=== PATIENT | female | born 1995 | race Caucasian/White ===

== ENCOUNTER 2024-08-17 06:04 | Inpatient (IN) | payer BC ==
[2024-08-17] MEDS ORDERED: CARBOPROST TROMETHAMINE 250 MCG/ML 1 ML AMP IM PRN (06:25)
[2024-08-17] MEDS ORDERED: TRANEXAMIC 1,000 MG/100ML-NACL 1,000 MG in EMPTY BAG 1 BAG IV PRN (06:25)
[2024-08-17] MEDS ORDERED: METHYLERGONOVINE 0.2 MG/ML 1 ML AMP IM PRN (06:25)
[2024-08-17] MEDS ORDERED: OXYTOCIN 10 UNIT/ML 1 ML VIAL IM PRN (06:25)
[2024-08-17] MEDS ORDERED: TERBUTALINE 1 MG/ML VIAL SQ PRN (06:25)
[2024-08-17] MEDS: LACTATED RINGERS 1,000 ML IV SCH (06:49)
[2024-08-17 06:54] LABS: Basophils # (A) 0.03 10*3/uL (0.00-0.10); Basophils % (A) 0.2 %; Eosinophils # (A) 0.07 10*3/uL (0.04-0.35); Eosinophils % (A) 0.5 %; HCT 40.1 % (37.2-46.3); HGB 14.8 g/dL (12.0-15.0); Immature Platelet Fraction 16.7 % (1.1-6.1); Lymphocytes # (A) 1.99 10*3/uL (0.90-5.00); Lymphocytes % (A) 14.9 %; MCH 36.4 pg (27.0-32.0); MCHC 36.9 g/dL (32.0-37.0); MCV 98.5 fL (80.0-97.0); Monocytes # (A) 0.76 10*3/uL (0.20-1.00); Monocytes % (A) 5.7 %; Neutrophils # (A) 10.31 10*3/uL (1.80-7.70); Neutrophils % (A) 77.3 %; Platelet Count 115 10*3/uL (140-440); RBC 4.07 10*6/uL (4.10-5.20); RDW 12.0 % (11.5-14.5); WBC 13.35 10*3/uL (4.50-10.00)
[2024-08-17] MEDS: OXYTOCIN 30 UNITS/500 ML NS 30 UNIT in SALINE 1 500ML.BAG IV SCH (07:05)
[2024-08-17] MEDS: NALBUPHINE 10 MG/ML (10 ML MDV) IV PRN (15:15)
[2024-08-17] MEDS ORDERED: fentaNYL (PF) 50 MCG/ML 5 ML AMP ONE (17:57)
[2024-08-17] MEDS ORDERED: ROPIVACAINE 5 MG/ML 30 ML VIAL ONE (17:57)
[2024-08-17] MEDS ORDERED: SODIUM CHLORIDE 0.9% 250 ML BAG ONE (17:57)
[2024-08-17] MEDS: AMPICILLIN 2,000 MG in SODIUM CHLORIDE 0.9% 100 ML IVPB ONE (20:45)
[2024-08-18] MEDS ORDERED: LANOLIN CREAM 1 GM TUBE TOPICAL PRN (00:56)
[2024-08-18] MEDS ORDERED: ZOLPIDEM 5 MG TAB PO PRN (00:56)
[2024-08-18] MEDS ORDERED: SIMETHICONE 80 MG CHEWABLE PO PRN (00:56)
[2024-08-18] MEDS ORDERED: diphenhydrAMINE 50 MG/ML 1 ML VIAL IVP PRN ×2 (00:56)
[2024-08-18] MEDS ORDERED: diphenhydrAMINE 25 MG CAP PO PRN (00:56)
--- NOTE | 2024-08-18 01:01 | P.PROBDLV ---
Vaginal Delivery Note - . Vaginal Delivery Note: Date of service 08/18/2024 Findings viable female infant delivered at 00 38, weight of 8 pounds 1 ounce 29-year-old 2 para 0-0-1-0 at 39-2/7 weeks that presented to labor and delivery for induction of labor this morning. Patient was admitted and Pitocin induction of labor was begun. Patient underwent amniotomy clear fluid was obtained. Patient made slow progress in labor eventually becoming uncomfortable and requesting epidural. Epidural was placed without difficulty by the anesthesia department. Patient made progress toward complete dilation once completely dilated patient began pushing and with excellent maternal effort patient had a normal spontaneous vaginal delivery of a viable female at 00 38, weight of 8 pounds 1 ounce, Apgars of 9 and 10 at 1 and 5 minutes respectively. Spontaneous cry was noted at . After a 2-minute delay the umbilical cord was doubly clamped and cut and delivered manually. Uterus was firm and below the umbilicus at that time. Bleeding did slow. Placenta was inspected and found to be intact. Marginal cord insertion was appreciated. On inspection the patient's vaginal vault second-degree midline laceration was appreciated, injected with lidocaine and repaired in the usual fashion with 3-0 Rapide. The bladder was drained for approximately 200 cc of clear yellow urine. All counts around be correct x 2 Patient and infant tolerated delivery well and are resting comfortably
--- NOTE | 2024-08-18 01:02 | P.HPOB ---
History of Present Illness H&P Date: 08/17/24 Chief Complaint: IUP at 39-3/7-week This is a 29-year-old G2, P0010 at 39-2/7 weeks that presents to labor and delivery for elective induction of labor. Patient has been receiving routine care which has been essentially uncomplicated, marginal cord insertion was appreciated on 20-week anatomy ultrasound. Patient notes good movement denies vaginal bleeding or loss of fluid. On blood work this patient has a blood type of O+, rubella status immune, hepatitis B surface and negative, HIV negative, RPR is nonreactive, group A strep culture is negative. Review of Systems Constitutional: Denies chills, Denies fatigue, Denies fever Ears, nose, mouth and throat: Denies headache Cardiovascular: Reports leg edema Respiratory: Denies dyspnea Gastrointestinal: Denies nausea, Denies vomiting Genitourinary: Reports Past Medical History Past Medical History: No Reported History History of Any Multi-Drug Resistant Organisms: None Reported Past Surgical History: Tonsillectomy Past Anesthesia/Blood Transfusion Reactions: No Reported Reaction Past Psychological History: No Psychological Hx Reported Smoking Status: Never smoker Past Drug Use History: None Reported Medications and Allergies Home Medications Medication Instructions Recorded Confirmed Type Aspirin 1 tab PO DAILY 08/17/24 08/17/24 History Vit No.179/Iron/Folic 1 tab PO DAILY 08/17/24 08/17/24 History [ Tablet] Allergies Allergy/AdvReac Type Severity Reaction Status Date / Time No Known Allergies Allergy Verified 08/17/24 06:23 Exam Osteopathic Statement: *. No significant issues noted on an osteopathic structural exam other than those noted in the History and Physical/Consult. Vital Signs Temp Pulse Resp BP Pulse Ox 08/17/24 06:43 97.6 F 82 16 133/74 97 Intake and Output 08/16/24 08/17/24 08/17/24 22:59 06:59 14:59 Other: Weight 92.533 kg Targeted physical exam is performed on this date in general is a well-nourished well-developed female in no acute distress, breathing is nonlabored, heart has a regular rate and rhythm, abdomen is gravid, heart tones are noted to be category 1 and she is maricarmen every 2 minutes. Results Result Diagrams: 08/17/24 06:40 Abnormal Lab Results - Last 24 Hours (Table) 08/17/24 Range/Units 06:40 WBC 13.35 H (4.50-10.00) 10*3/uL RBC 4.07 L (4.10-5.20) 10*6/uL MCV 98.5 H (80.0-97.0) fL MCH 36.4 H (27.0-32.0) pg Plt Count 115 L (140-440) 10*3/uL MPV 13.8 H (9.5-12.2) fL Immature Gran # 0.19 H (0.00-0.04) 10*3/uL Neutrophils # 10.31 H (1.80-7.70) 10*3/uL Immature Plt Fraction 16.7 H (1.1-6.1) % Assessment and Plan (1) Term Current Visit: Yes Status: Acute Code(s): Z34.90 - ENCNTR FOR SUPRVSN OF NORMAL , UNSP, UNSP TRIMESTER SNOMED Code(s): 97578073 Plan: Admit to labor and delivery Induction of labor per protocol Clear liquid diet as tolerated Options for analgesia discussed, patient does elect epidural when appropriate Anticipate spontaneous vaginal delivery
[2024-08-18] MEDS: LIDOCAINE 0.5% (PF) 5 MG/ML (50 ML SDV) SQ PRN (01:11)
[2024-08-18] MEDS: BENZOCAINE/MENTHOL SPRAY 1 GM/SPRAY AEROSOL TOPICAL PRN (01:27)
[2024-08-18] MEDS: IBUPROFEN 800 MG TAB PO SCH (02:11)
[2024-08-18] MEDS: SENNOSIDES-DOCUSATE SODIUM 1 EACH TAB PO SCH (08:13)
[2024-08-18] MEDS: ACETAMINOPHEN TAB 500 MG TAB PO SCH (08:13)
--- NOTE | 2024-08-18 09:27 | P.PNOBGVD ---
Subjective - Subjective Principal diagnosis: day #1 Interval history: Patient is doing well . She is ambulating and voiding without difficulty. She is tolerating a regular diet without nausea or vomiting. She states her pain is well-controlled. Lochia is minimal. Breast-feeding with some difficulty Patient reports: Reports appetite normal, Reports voiding normally, Reports pain well controlled, Reports ambulating normally : doing well Objective - Latest Vital Signs Latest vital signs: Vital Signs Temp Pulse Resp BP 08/18/24 08:09 97.4 F L 94 16 117/74 08/18/24 05:31 98.3 F 94 16 123/78 08/18/24 02:50 97.3 F L 81 16 124/56 08/18/24 02:35 87 16 114/56 08/18/24 02:20 82 15 120/57 08/18/24 02:05 78 16 127/60 08/18/24 01:50 89 16 118/56 08/18/24 01:35 84 16 126/62 08/18/24 01:20 84 16 126/62 08/18/24 01:05 86 16 125/61 08/18/24 00:50 97.1 F L 100 16 130/70 Intake and Output 08/17/24 08/18/24 08/18/24 22:59 06:59 14:59 Intake Total 460.416 Output Total 125 Balance 335.416 Intake: Intake, IV Titration 460.416 Amount Oxytocin 30 Units/500 ml 460.416 Ns 30 unit In Saline 1 500ml.bag @ Per Protocol IV .Q0M [facility] Rx#:[id number] Output: Output, Quantitative 125 Blood Loss Other: # Voids 1 1 1 - Exam Extremities: Present: normal, edema Abdomen: Present: normal appearance, soft Uterus: Present: normal, firm Assessment and Plan (1) Term Current Visit: Yes Status: Acute Code(s): Z34.90 - ENCNTR FOR SUPRVSN OF NORMAL , UNSP, UNSP TRIMESTER SNOMED Code(s): 53415665 (2) Status post normal vaginal delivery Current Visit: Yes Status: Acute Code(s): ZLI7984 - SNOMED Code(s): 439034320 (3) Obstetrical laceration, second degree Current Visit: Yes Status: Acute Code(s): O70.1 - SECOND DEGREE PERINEAL LACERATION DURING DELIVERY SNOMED Code(s): 4611518 Plan: Patient is doing well . Continue routine care.
--- NOTE | 2024-08-19 08:39 | P.PNOBGVD ---
Subjective - Subjective Patient reports: Reports appetite normal, Reports voiding normally, Reports pain well controlled, Reports ambulating normally : doing well, in NICU (Having difficulty with mucus in the airway and some feeding issues as well.) Objective - Latest Vital Signs Latest vital signs: Vital Signs Temp Pulse Resp BP Pulse Ox 08/19/24 00:00 69 16 122/64 98 08/18/24 16:00 98.2 F 94 16 120/67 - Exam Extremities: Present: normal Abdomen: Present: normal appearance, soft Uterus: Present: normal, firm Assessment and Plan (1) Status post normal vaginal delivery Current Visit: Yes Status: Acute Code(s): BIN3075 - SNOMED Code(s): 693441157 Plan: The patient is currently day #1. As the infant remains in special care nursery, the patient will remain in the hospital for another 24 hours. Continue routine care and I would anticipate discharge home tomorrow pending no complications.
[2024-08-19] MEDS: HYDROCORTISONE 2.5% RECTAL CREAM 30 GM TUBE RECTAL PRN (10:30)
[2024-08-19] MEDS: AMPICILLIN 1,000 MG in SODIUM CHLORIDE 0.9% 50 ML IVPB SCH (19:40)
--- NOTE | 2024-08-20 09:41 | P.DS ---
Providers Date of admission: 08/17/24 06:04 Expected date of discharge: 08/20/24 Attending physician: Carline Malone Primary care physician: Stated None - Discharge Diagnosis(es) (1) Status post normal vaginal delivery Current Visit: Yes Status: Acute Hospital Course: The patient is a 29-year-old 2 para 0-0-1-0 admitted at 39-2/7 weeks by good dating parameters. She is admitted for elective induction of labor with all signs are reassuring, category 1 heart rate tracing. Her has been uncomplicated and group B strep status is negative. On labor and delivery, she had Pitocin started followed by artificial rupture of membranes. An epidural catheter was placed during labor course and she ultimately progressed to complete where after she pushed to a normal spontaneous vaginal delivery of a viable 8 pound 1 ounce baby girl with Apgars of 9 at 1 minute and 10 at 5 minutes. The patient's course was unremarkable with vital signs remaining stable throughout. The infant, however, had an episode of apnea at approximately 9 hours at which time a significant amount of mucus was noted in the airway and the infant has remained in the special care nursery for ongoing issues with both feeding and breathing since that time. The patient was deemed stable for discharge on day #2 and was discharged home to follow-up in the office in 6 weeks time routinely. Discharge instructions included calling for any significantly increased bleeding or foul-smelling lochia, significantly increased fever or abdominal pain, perineal complaints, breast complaints, or anything else that concerned her. She was additionally instructed to have nothing in the vagina for at least 6 weeks time to include intercourse. She understood her instructions and agrees to follow-up as noted above. Discharge medications included only [id number] analgesic pain medications as well as continued vitamins as she has opted to breast- feed. Maternal blood type is O+ and rubella status is immune. Procedures: #1. Pitocin induction #2. Artificial rupture of membranes #3. Epidural analge channing #4. Normal spontaneous vaginal delivery #5. Repair of second-degree perineal laceration Patient Condition at Discharge: Stable Plan - Discharge Summary New Discharge Prescriptions: No Action Vit No.179/Iron/Folic [ Tablet] 1 tab PO DAILY Aspirin 1 tab PO DAILY Discharge Medication List Aspirin 1 tab PO DAILY 08/17/24 [History] Vit No.179/Iron/Folic [ Tablet] 1 tab PO DAILY 08/17/24 [History] Follow up Appointment(s)/Referral(s): Carline Malone DO [Doctor of Osteopathic Medicine] - 09/29/24 8:45 am Patient Instructions/Handouts: Vaginal Delivery (DC), Vaginal Delivery (GEN) Activity/Diet/Wound Care/Special Instructions: [id number] ibuprofen 600 mg or 3 tablets every 6 hours as needed for pain. Routine check at 6 weeks. No tub baths or intercourse until 6 weeks . Should she have any concerns prior to her postop appointment she is urged to call the office and be seen prior Discharge Disposition: HOME SELF-CARE
[2024-08-20 10:01] VITALS: RESP 18
[2024-08-20 16:27] VITALS: BP 116/70; PULSE 68; TEMP 98.1
== END 2024-08-20 17:30 | disposition home or self-care (01) | DRG 807 ==
LOC: 4FBP 06:04
PROVIDERS: ADMIT Obstetrics & Gynecology Obstetrics; ATTEND Obstetrics & Gynecology Obstetrics
PROC: 3E033VJ Introduction of Other Hormone into Peripheral Vein, Percutaneous Approach (ICD-10-PCS; 2024-08-17)
PROC: 10907ZC Drainage of Amniotic Fluid, Therapeutic from Products of Conception, Via Natural or Artificial Opening (ICD-10-PCS; 2024-08-17)
PROC: 10E0XZZ Delivery of Products of Conception, External Approach (ICD-10-PCS; principal; 2024-08-18)
PROC: 0KQM0ZZ Repair Perineum Muscle, Open Approach (ICD-10-PCS; principal; 2024-08-18)
DX: O43.193 Other malformation of placenta, third trimester (principal); Z37.0 Single live birth; O70.1 Second degree perineal laceration during delivery; Z3A.39 39 weeks gestation of pregnancy; Z79.82 Long term (current) use of aspirin
CPT/HCPCS: 85025; 86850; 86900; 86901; 88307